=== PATIENT | female | born 1990 | race Caucasian/White ===

== ENCOUNTER 2017-07-02 11:09 | Emergency (ER) | payer MEDICAID ==
[~2017-07-02] VITALS: Ht 167.6 cm; Wt 61.8 kg
[2017-07-02] MEDS ORDERED: PERTUSS(ACELL),DIPH,TET VAC/PF 0.5 ML VIAL IM ONE (12:00)
[2017-07-02] MEDS ORDERED: IBUPROFEN 600 MG TABLET PO ONE (12:00)
[2017-07-02 12:55] VITALS: BP 116/70
[2017-07-02] MEDS ORDERED: BACITRACIN 0.9 GM PACKET OINTMENT TP ONE (13:30)
== END 2017-07-02 13:43 | disposition home or self-care (01) ==
LOC: EMS 11:10
DX: S01.81XA Laceration without foreign body of other part of head, initial encounter (principal); S61.411A Laceration without foreign body of right hand, initial encounter; S50.01XA Contusion of right elbow, initial encounter; S30.1XXA Contusion of abdominal wall, initial encounter; W10.8XXA Fall (on) (from) other stairs and steps, initial encounter; Y93.89 Activity, other specified; Y92.89 Other specified places as the place of occurrence of the external cause; Y99.8 Other external cause status
CPT/HCPCS: 70450; 90471; 90715; 99284